=== PATIENT | male | born 1990 | race Caucasian/White ===

== ENCOUNTER 2017-03-25 08:44 | Emergency (ER) | payer MEDICAID, OTHER ==
[~2017-03-25] VITALS: Ht 182.9 cm; Wt 84.0 kg
[2017-03-25 08:48] VITALS: Ht 182.9 cm; Wt 84.0 kg
--- NOTE | 2017-03-25 09:01 | ERD ---
ER Documentation Chief Complaint Date/Time DATE: 03/25/17 TIME: 08:59 Chief Complaint HPI 26-year-old male who presents to the emergency room after receiving Narcan secondary to heroin overdose. The patient admits using heroin just prior to arrival. The patient was being bagged via EMS and received Narcan. Accu-Chek in the field was normal. The patient had immediate response to Narcan and did not require intubation. He states that he only used heroin he did not use any long-acting opioids like methadone. He denies any suicidal or homicidal intent. The patient states that he is currently at a sober living facility. He may not be allowed back there and is asking for school social worker resources. No fall no head trauma no aspiration event. ROS All systems reviewed and are negative except as per history of present illness. PMhx/Soc Medical and Surgical Hx: pt denies Medical Hx, pt denies Surgical Hx History of Surgery: No Anesthesia Reaction: No Hx Neurological Disorder: No Hx Respiratory Disorders: No Hx Cardiac Disorders: No Hx Psychiatric Problems: No Hx Miscellaneous Medical Probl: No Hx Alcohol Use: Yes Hx Substance Use: Yes (heroin) Hx Tobacco Use: Yes Smoking Status: Current every day smoker FmHx Family History: No diabetes Physical Exam Vitals Vital Signs Date Time Temp Pulse Resp B/P Pulse Ox O2 Delivery O2 Flow Rate FiO2 03/25/17 08:48 97.9 95 17 129/84 99 Physical Exam General: Disheveled but no acute distress, conversive Head: Normocephalic, atraumatic. Eyes: Pupils equally reactive, EOM intact ENT: Moist mucous membranes Neck: Supple, no lymphadenopathy Respiratory: Lungs clear bilaterally, no distress Cardiovascular: RRR, no murmurs, rubs, or gallops Abdominal: Soft, non-tender, non-distended, no peritoneal signs : Deferred MSK: No edema, no unilateral swelling, 5/5 strength Neurologic: Alert and oriented, moving all extremities, normal speech, no focal weakness, no cerebellar signs Skin: No rash Psych: Normal mood Procedures/MDM The patient presents with a resolved opiate overdose. The patient received Narcan. He does not take any long-acting medications. The patient does not have any significant indication for prolonged observation in the emergency room. He is alert, conversive without evidence of complication such as cardiac arrest, aspiration event or infectious process. The patient will require school social worker resources. Patient does not require any further dosing of Narcan. He continues to be well-appearing and will be discharged from the emergency room. We discussed follow up with the patient's primary care doctor within 24 to 48 hours as needed. We also discussed return to the emergency room for worsening symptoms or worsening condition. Outpatient referral: director of social services, detox center Discharge Medications: None required Departure Diagnosis: Primary Impression: Heroin overdose Encounter type: initial encounter Injury intent: accidental or unintentional Qualified Code: T40.1X1A - Heroin overdose, accidental or unintentional, initial encounter Condition: Stable Patient Instructions: Drug Abuse Referrals: [facility] YOU HAVE RECEIVED A MEDICAL SCREENING EXAM AND THE RESULTS INDICATE THAT YOU DO NOT HAVE A CONDITION THAT REQUIRES URGENT TREATMENT IN THE EMERGENCY DEPARTMENT. FURTHER EVALUATION AND TREATMENT OF YOUR CONDITION CAN WAIT UNTIL YOU ARE SEEN IN YOUR DOCTORS OFFICE WITHIN THE NEXT 1-2 DAYS. IT IS YOUR RESPONSIBILITY TO MAKE AN APPOINTMENT FOR FOLOW-UP CARE. IF YOU HAVE A PRIMARY DOCTOR --you should call your primary doctor and schedule an appointment IF YOU DO NOT HAVE A PRIMARY DOCTOR YOU CAN CALL OUR PHYSICIAN REFERRAL HOTLINE AT IF YOU CAN NOT AFFORD TO SEE A PHYSICIAN YOU CAN CHOSE FROM THE FOLLOWING [facility] [address] [facility]. [facility] [address] [facility]. [facility] [address] [facility] [facility] [address] [facility]. [facility] [address] [facility]. [facility]. [address] [facility]. [facility] YOU HAVE RECEIVED A MEDICAL SCREENING EXAM AND THE RESULTS INDICATE THAT YOU DO NOT HAVE A CONDITION THAT REQUIRES URGENT TREATMENT IN THE EMERGENCY DEPARTMENT. FURTHER EVALUATION AND TREATMENT OF YOUR CONDITION CAN WAIT UNTIL YOU ARE SEEN IN YOUR DOCTORS OFFICE WITHIN THE NEXT 1-2 DAYS. IT IS YOUR RESPONSIBILITY TO MAKE AN APPOINTMENT FOR FOLOW-UP CARE. IF YOU HAVE A PRIMARY DOCTOR --you should call your primary doctor and schedule and appointment IF YOU DO NOT HAVE A PRIMARY DOCTOR YOU CAN CALL OUR PHYSICIAN REFERRAL HOTLINE AT . IF YOU CAN NOT AFFORD TO SEE A PHYSICIAN YOU CAN CHOSE FROM THE FOLLOWING [facility], [facility] INSTITUTIONS: [facility] [address] [place] [address] [facility] [address] [place] [address] [facility] [address] [place] [address] Additional Instructions: Call your primary care doctor TOMORROW for an appointment during the next 1 WEEK.Tell the principal android developer that you were referred from this facility.See the doctor sooner or return here if your condition worsens before your appointment time. LARRY RHODES MD Mar 25, 2017 09:01
[2017-03-25] MEDS ORDERED: ONDANSETRON (ODT) 4 MG TAB ODT STA (09:49)
[2017-03-25 09:58] VITALS: BP 129/84; PULSE 92; RESP 20
== END 2017-03-25 10:03 | disposition home or self-care (01) ==
LOC: E/R 08:44
DX: T40.1X1A Poisoning by heroin, accidental (unintentional), initial encounter (principal); F17.210 Nicotine dependence, cigarettes, uncomplicated
CPT/HCPCS: Z7502; Z7610; 99283